=== PATIENT | female | born 1955 ===

== ENCOUNTER 2017-04-12 12:24 | Emergency (ER) | payer MEDICARE, OTHER ==
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
--- NOTE | 2017-04-12 14:45 | RAD ---
HISTORY: Pain, rule out foreign body COMPARISONS: None VIEWS: 2, frontal and lateral views of the neck FINDINGS: The neck is visualized from the skull base through T2. There is degenerative disc disease and osteoarthritis of the cervical spine. The lung apices are clear. The prevertebral soft tissue is normal. There is a continuous air column from the pharynx the trachea. There is no radiopaque foreign body. IMPRESSION: DEGENERATIVE DISC DISEASE AND OSTEOARTHRITIS. NO RADIOPAQUE FOREIGN BODY.
== END 2017-04-12 15:24 | disposition home or self-care (01) ==
LOC: UCEAST 12:24
DX: Z04.71 Encounter for examination and observation following alleged adult physical abuse (principal); Y04.8XXA Assault by other bodily force, initial encounter; Z72.0 Tobacco use
CPT/HCPCS: 70360; 99202; G0463